=== PATIENT | male | born 1965 | race Caucasian/White ===

== ENCOUNTER 2020-06-18 21:42 | Emergency (ER) | payer OTHER, MEDICAID ==
[~2020-06-18] VITALS: Ht 180.3 cm; Wt 164.7 kg
--- NOTE | ~2020-06-18 | EMS ---
[place] [address] EMS Patient Care Report Name: CLAYTON VERGARA [id number] Admission: 06/18/20 Attend Phys: Discharge: 06/19/20 Date of : 69 Report #: [id number] THIS REPORT FOR: //name// Report Transmitted: 06/19/2020 15:30 EMS Care Summary [facility] Incident [id number] @ 06/18/2020 20:22 Incident Location [address] [place] [address] Patient CLAYTON VERGARA Male, 54 Years 1965 Patient Address [address] [place] [address] Patient History Chronic Obstructive Pulmonary Disease (COPD),Atrial Fibrillation, Patient Allergies Penicillin allergy,Advair, Patient Medications Tamsulosin, Xarelto, Doxepin, Losartan, Pantoprazole, Chief Complaint Chest pain Disposition Transported Lights/[place] Dispatch Reason Breathing Problem Transported To [facility] Narrative Dispatch: [facility] was dispatched for a male patient complaining of shortness of breath and chest pain. Med 1 copied tones and [place] [address] EMS Patient Care Report Name: CLAYTON VERGARA [id number] Admission: 06/18/20 Attend Phys: Discharge: 06/19/20 Date of : 69 Report #: [id number] Chief complaint: Med 1 arrived on scene to find patient sitting upright in his chair. Patient is alert and does appear to be in mild distress and discomfort. Patient states that he has 10 out of 10 chest pain, and states he is ???having difficulty breathing.??? History of present illness/NICOLE: The patient states that the chest pain started this morning, and ???has not gone away.??? Patient states he had an LA years prior, and the chest pain he is experiencing currently is ???worse than before.??? Assessment Airway: Clear, patent, and self maintained. Breathing: Clear, and equal bilaterally. Non labored respirations. Circulation: Skin is pink, warm, and dry. Strong radial pulses. Disability: A&OX4, GCS 15. Exposures: No life threats were found. See ???assessments??? tab for further. Reason for ambulance: Patient is experiencing chest pain, and shortness of breath. Requesting EMS treatment and transport to [facility]. Treatments: ALS assessment. 324mg ASA. 2 liters O2 nasal cannula. 1 nitro spray. 20G IV right forearm. 15 liters O2 non rebreather. 50MCG Fentanyl. 4mg Zofran IV. See ???flowchart??? for further. Summary: With the assistance of EMS, the patient was placed onto the cot, secured in place, and placed into the ambulance for transport. The patient was placed onto the monitor. A 12 lead EKG was performed showing sinus tachycardia with a RBBB. Patient was given 324mg ASA and 1 spray of Nitro. An IV was established. Med 1 went en route non emergent but upgraded due to patient condition. Patient states he is experiencing 10/10 tearing sensation between his shoulder blades and difficulty breathing. Patient was placed onto 15 liters O2 non rebreather. Patient was given 50mcg Fentanyl and 4mg Zofran. A mass of approx. 4 inches is noted proximal to the umbilicus with abdominal distention. Patient???s skin is pale. Radio report was given and no further questions or orders were received. Med 1 arrived at destination and the patient was taken to room 1 in the ED where he was sheet transferred onto the bed. Report was given and signatures and paperwork were received. Med 1 returned back in service. Initial Vitals @21:45 @21:05P: 137,R: 17,EtCO2: 35,SpO2: 93, @20:41P: 130,R: 20,BP: 200/110,GCS: 15,SpO2: 97,Revised Trauma: 12, @21:19 @20:56R: 20,BP: 187/150,EtCO2: 39,LA Suspected: false @21:10P: 138,EtCO2: 32,SpO2: 95, [place] [address] EMS Patient Care Report Name: CLAYTON VERGARA Room: [facility] Imelda#: [id number] Admission: 06/18/20 Attend Phys: Discharge: 06/19/20 Date of : [birth year] Report #: [id number] @21:25P: 134,BP: 115/57,SpO2: 100,LA Suspected: false @20:54GCS: 15,LA Suspected: false @21:38P: 129,R: 19,EtCO2: 41,SpO2: 100,LA Suspected: false @20:55P: 133,SpO2: 95,LA Suspected: false @21:50MI Suspected: false @21:30P: 137,BP: 178/82,EtCO2: 41,SpO2: 100,LA Suspected: false @20:59P: 134,R: 21,EtCO2: 36,SpO2: 97,LA Suspected: false Assessments @20:37MENTAL:Person Oriented,Time Oriented,Event Oriented,Place Oriented,SKIN:HEENT:LUNG SOUNDS:ABDOMEN:PELVIS//GI:EXTREMITIES:Capillary Refill: Right Upper: < 2 Sec,PULSE:Radial: 2+ Normal,NEURO:@21:10MENTAL:Person Oriented,Time Oriented,Event Oriented,Place Oriented,SKIN:Pale,HEENT:LUNG SOUNDS:Right Upper: Distension,Left Upper: Distension,Left Lower: Distension,Right Lower: Distension,ABDOMEN:Right Upper: Distension,Left Upper: Distension,Left Lower: Distension,Right Lower: Distension,PELVIS//GI:EXTREMITIES:Capillary Refill: Right Upper: < 2 Sec,PULSE:Radial: 2+ Normal,NEURO: Impression Chest Pain / Discomfort Procedures @20:5912-Lead ECGResponse: UnchangedSucceeded@21:3012-Lead ECGResponse: UnchangedSucceeded@21:2512-Lead ECGResponse: UnchangedSucceeded@21:3812-Lead ECGResponse: UnchangedSucceeded@20:5612-Lead ECGResponse: UnchangedSucceeded@20:5412-Lead ECGResponse: UnchangedSucceeded@20:5512-Lead ECGResponse: UnchangedSucceeded@20:36ALS AssessmentResponse: UnchangedSucceeded@20:55Saline Lock 0cc (20 ga) Site: Antecubital-RightResponse: UnchangedSucceeded@20:56Saline Lock 0cc (20 ga) Site: Forearm-RightResponse: UnchangedSucceeded@20:56Nitro [place] - 0.4 Milligrams (mg) - SublingualResponse: Improved@20:54Aspirin - 324 Milligrams (mg) - OralResponse: Improved@21:25Fentanyl - 50 Micrograms (mcg) - Intravenous (IV)Response: Improved@21:06Oxygen FlowRate: 15 Device: Non Re-breather Mask (NRB) Response: UnchangedSucceeded Timeline 20:22,Dispatched 20:28,Call Received 20:31,En Route 20:34,On Scene 20:36,At Patient 20:36,ALS Assessment,Response: UnchangedSucceeded, 20:41,BP: 200/110 M,PULSE: 130,RR: 20 R,SPO2: 97 Ox,ETCO2: ,BG: ,PAIN: ,GCS: 15, 20:54,Aspirin - 324 Milligrams (mg) - Oral,Response: [place] [address] EMS Patient Care Report Name: CLAYTON VERGARA [id number] Admission: 06/18/20 Attend Phys: Discharge: 06/19/20 Date of : 69 Report #: [id number] 20:54,12-Lead ECG,Response: UnchangedSucceeded, 20:54,BP: / M,PULSE: ,RR: R,SPO2: Ox,ETCO2: ,BG: ,PAIN: ,GCS: 15, 20:55,Saline Lock 0cc 20 ga Site: Antecubital-Right,Response: UnchangedSucceeded, 20:55,12-Lead ECG,Response: UnchangedSucceeded, 20:55,BP: / M,PULSE: 133,RR: R,SPO2: 95 Ox,ETCO2: ,BG: ,PAIN: ,GCS: , 20:56,Saline Lock 0cc 20 ga Site: Forearm-Right,Response: UnchangedSucceeded, 20:56,Nitro [place] - 0.4 Milligrams (mg) - Sublingual,Response: Improved 20:56,12-Lead ECG,Response: UnchangedSucceeded, 20:56,BP: 187/150 M,PULSE: ,RR: 20 R,SPO2: Ox,ETCO2: 39 ,BG: ,PAIN: ,GCS: , 20:59,12-Lead ECG,Response: UnchangedSucceeded, 20:59,BP: / M,PULSE: 134,RR: 21 R,SPO2: 97 Ox,ETCO2: 36 ,BG: ,PAIN: ,GCS: , 21:01,Depart Scene 21:05,BP: / M,PULSE: 137,RR: 17 R,SPO2: 93 Ox,ETCO2: 35 ,BG: ,PAIN: ,GCS: , 21:06,Oxygen FlowRate: 15 Device: Non Re-breather Mask (NRB) Response: UnchangedSucceeded, 21:10,BP: / M,PULSE: 138,RR: R,SPO2: 95 Ox,ETCO2: 32 ,BG: ,PAIN: ,GCS: , 21:19,BP: / M,PULSE: ,RR: R,SPO2: Ox,ETCO2: ,BG: ,PAIN: ,GCS: , 21:25,Fentanyl - 50 Micrograms (mcg) - Intravenous (IV),Response: Improved 21:25,12-Lead ECG,Response: UnchangedSucceeded, 21:25,BP: 115/57 M,PULSE: 134,RR: R,SPO2: 100 Ox,ETCO2: ,BG: ,PAIN: ,GCS: , 21:30,12-Lead ECG,Response: UnchangedSucceeded, 21:30,BP: 178/82 M,PULSE: 137,RR: R,SPO2: 100 Ox,ETCO2: 41 ,BG: ,PAIN: ,GCS: , 21:38,12-Lead ECG,Response: UnchangedSucceeded, 21:38,BP: / M,PULSE: 129,RR: 19 R,SPO2: 100 Ox,ETCO2: 41 ,BG: ,PAIN: ,GCS: , 21:40,At Destination 21:45,BP: / M,PULSE: ,RR: R,SPO2: Ox,ETCO2: ,BG: ,PAIN: ,GCS: , 21:50,BP: / M,PULSE: ,RR: R,SPO2: Ox,ETCO2: ,BG: ,PAIN: ,GCS: , 22:41,Call Closed Disclaimer v1.1 Copyright 2020 [employer] This EMS Care Summary contains data elements from the applicable legal record (which may be displayed differently). It is designed to provide pertinent information for the following purposes: continuity of care, clinical quality, and state data reporting. The complete legal record is available to ED staff and administrators of the receiving hospital in [employer]'s Patient Tracker. All data is provided "as is."
[2020-06-18 22:28] LABS: ABSOLUTE BASOPHILS 0.1 thou/uL (0.0-0.2); ABSOLUTE EOSINOPHILS 0.1 thou/uL (0.0-0.7); ABSOLUTE LYMPHOCYTES 1.1 thou/uL (0.8-5.3); ABSOLUTE MONOCYTES 0.7 thou/uL (0.0-1.2); ABSOLUTE NEUTROPHILS 8.2 thou/uL (1.6-8.1); BASOPHILS 0.7 %; EOSINOPHILS 1.3 %; HEMATOCRIT 37.8 % (42.0-52.0); HEMOGLOBIN 12.4 gm/dL (14.0-18.0); LYMPHOCYTES 10.3 %; MCH 27.2 pg (26.0-34.0); MCHC 32.7 g/dL (28.0-37.0); MCV 83.1 fL (80.0-100.0); MONOCYTES 7.2 %; MPV 8.8 fl. (7.2-11.1); NUCLEATED RBCS 0 /100WBC; PLATELET COUNT* 255 thou/uL (150-400); POLYS 80.5 %; RBC 4.55 mil/uL (4.50-6.00); RDW-CV 15.5 % (10.5-14.5); WBC 10.2 thou/uL (4.0-11.0)
[2020-06-18 22:30] LABS: CALCIUM 8.4 mg/dL (8.5-10.1); CREATININE 0.9 mg/dL (0.6-1.3); POTASSIUM 4.2 mmol/L (3.5-5.1)
[2020-06-18 22:33] LABS: APTT 26.3 Seconds (25.0-31.3); INR 1.1; PROTIME 11.2 Seconds (9.20-11.50)
[2020-06-18 22:41] LABS: ALBUMIN 2.8 g/dL (3.4-5.0); TOTAL BILIRUBIN 0.2 mg/dL (<0.1-1.0); TOTAL PROTEIN 7.5 g/dL (6.4-8.2)
[2020-06-18 23:11] LABS: INFLUENZA A ANTIGEN Negative (Negative); INFLUENZA B ANTIGEN Negative (Negative)
[2020-06-18 23:15] LABS: URINE BILIRUBIN NEGATIVE (Negative); URINE BLOOD NEGATIVE (Negative); URINE CLARITY CLEAR; URINE COLOR YELLOW; URINE GLUCOSE-RANDOM 2+ (Negative); URINE KETONES NEGATIVE (Negative); URINE LEUKOCYTES-REFLEX NEGATIVE (Negative); URINE NITRITE-REFLEX NEGATIVE (Negative); URINE PROTEIN NEGATIVE (Negative); URINE UROBILINOGEN 0.2 E.U./dl (0.2-1.0)
[2020-06-18 23:19] LABS: AMP/METHAMP Negative (Negative); BARBITURATES Negative (Negative); BENZODIAZEPINES Negative (Negative); COCAINE Negative (Negative); METHADONE Negative (Negative); OPIATES Negative (Negative); PCP Negative (Negative); THC Negative (Negative)
[2020-06-19 01:40] VITALS: BP 128/70
--- NOTE | 2020-06-19 16:24 | EKG ---
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1965 Requested By: Amena Paulino Order Number: [id number] MD: Jimmy Corbin Measurements Intervals [place] Rate: 126 P: 26 OK: 148 QRS: -74 QRSD: 149 T: 28 QT: 321 QTc: 465 Interpretive Statements Sinus tachycardia Right bundle branch block Inferolateral infarct, old No previous ECG available for comparison Electronically Signed On 06-19-2020 16:24:04 [employer] by Jimmy Corbin [email or web address] <ELECTRONICALLY SIGNED> By: Jimmy Corbin MD, [facility] 06/19/20 1624 48 48 Jimmy Corbin MD, [facility] /EPI
== END 2020-06-19 01:40 | disposition home or self-care (01) ==
LOC: M.ERS 21:42
PROVIDERS: Personal Emergency Response Attendant
DX: R10.84 Generalized abdominal pain (principal); R07.89 Other chest pain; Z20.822 Contact with and (suspected) exposure to COVID-19; I10 Essential (primary) hypertension; J44.9 Chronic obstructive pulmonary disease, unspecified; F17.210 Nicotine dependence, cigarettes, uncomplicated; Z88.0 Allergy status to penicillin; Z88.8 Allergy status to other drugs, medicaments and biological substances; Z79.899 Other long term (current) drug therapy